=== PATIENT | female | born 1980 | race Caucasian/White ===

== ENCOUNTER 2024-12-29 13:52 | Emergency (ER) | payer MEDICARE, MEDICAID ==
[~2024-12-29] VITALS: Ht 167.6 cm; Wt 83.0 kg
[2024-12-29 13:56] VITALS: O2SAT 98
[2024-12-29 14:06] VITALS: BP 121/64; PULSE 89; RESP 16; TEMP 36.8; O2SAT 98
[2024-12-29 17:14] LABS: BASOPHILS % 0.7 % (0.0-2.0); EOSINOPHILS % 3.2 % (0.0-5.0); HEMATOCRIT. 38.3 % (36.0-48.0); HEMOGLOBIN. 12.7 g/dL (12.0-16.0); LYMPHOCYTES % 32.5 % (20.0-50.0); MEAN PLATELET VOLUME 8.0 fl (7.4-10.4); MONOCYTES % 7.4 % (2.0-8.0); NEUTROPHILS % 56.2 % (40.0-76.0); PLATELET 223 x1000/uL (130-400); RED BLOOD CELL COUNT 4.51 mill/uL (4.2-5.4); RED CELL DISTRIBUTION WIDTH 12.5 % (11.6-14.6)
[2024-12-29 17:28] LABS: CREATININE 1.1 mg/dL (0.6-1.0); UREA NITROGEN BLOOD 16.0 mg/dL (9-23)
[2024-12-29] MEDS ORDERED: INSULIN REGULAR (HUMULIN R) 1000UNITS/10ML VIAL SUBCUT ONE (19:15)
== END 2024-12-29 19:43 | disposition left against medical advice (07) ==
LOC: ER 13:52
DX: L97.519 Non-pressure chronic ulcer of other part of right foot with unspecified severity (principal); E11.621 Type 2 diabetes mellitus with foot ulcer; F95.2 Tourette's disorder
CPT/HCPCS: 36415; 73630; 80048; 81025; 85025; 99284